=== PATIENT | male | born 1995 | race Hispanic/Latino ===

== ENCOUNTER 2018-03-22 11:18 | Emergency (ER) | payer OTHER, SELFPAY ==
[2018-03-22] MEDS ORDERED: Dexamethasone 4 mg/ml Vial ONE (12:05)
[2018-03-22] MEDS ORDERED: Ketorolac Tromethamine 30 MG/ML VIAL ONE (12:05)
[2018-03-22 12:17] LABS: Mononucleosis NEGATIVE (NEGATIVE)
[2018-03-22 12:17] LABS: #Basophils 0.1 thou/uL (0.0-0.2); #Lymphocytes 1.8 thou/uL (1.20-3.40); #Monocytes 0.6 thou/uL (0.11-0.59); #Neutrophils 7.2 thou/uL (1.40-6.50); %Basophils 0.6 % (0.0-1.0); %Eosinophils 0.3 % (0.0-10.0); %Lymphocytes 18.5 % (28.0-48.0); %Monocytes 6.5 % (0.0-4.0); Mean Corpuscular HGB CONC 33.6 g/dL (32.0-36.0); Mean Corpuscular Hemoglobin 30.9 pg (25.0-35.0); Mean Platelet Volume 7.2 fL (7.4-10.4); Platelet Count 287 thou/uL (130-400); RBC Distribution Width 11.8 % (11.5-14.5); Red Blood Cell (RBC) Count 5.18 mill/uL (4.00-5.20); White Blood Cell (WBC) Count 9.7 thou/uL (4.8-10.8)
[2018-03-22 12:18] LABS: MONO NEGATIVE CONTROL ZONE White (Negative) (White); MONO POSITIVE CONTROL Pink Line (Positive) (PINK/RED)
[2018-03-22 12:37] LABS: ALT (SGPT) 19 U/L (8-55); AST (SGOT) 20 U/L (5-34); Albumin 4.9 g/dL (3.5-5.0); Alkaline Phosphatase 79 U/L (Less than 750); Anion Gap 13 mmol/L (10-20); BUN (Urea Nitrogen) 10 mg/dL (8.9-20.6); Bilirubin, Total 1.3 mg/dL (0.2-1.2); Calc. Creatinine Clearance 0 mL/min (70-130); Calcium 10.2 mg/dL (7.8-10.44); Carbon Dioxide 24 mmol/L (22-29); Chloride 101 mmol/L (98-107); Estimated GFR-MDRD Greater than 90; Globulin 2.7 g/dL (2.4-3.5); Glucose 96 mg/dL (70-105); Potassium 3.8 mmol/L (3.5-5.1); Protein, Total 7.6 g/dL (6.0-8.3); Sodium 134 mmol/L (136-145)
--- NOTE | 2018-03-22 13:15 | CT ---
CT NECK SOFT TISSUES: HISTORY: Neck pain. Sore throat. COMPARISON: None. FINDINGS: The lung apices are clear. No significant cervical adenopathy. Mild hypertrophy of the nasopharynge al tonsils. Mild hypertrophy of the palatine tonsils without evidence of a drainable abscess. There is a small right palatine tonsillolith. The submandibular glands are symmetric without significant edema. Cervical spine alignment is normal . IMPRESSION: Mild nasopharyngeal and palatine tonsillitis without evidence of a drainable abscess. No significant cervical adenopathy. POS: KITTY
[2018-03-22] MEDS ORDERED: Iopamidol 370 76% 100 ML VIAL ONE (15:53)
== END 2018-03-22 15:02 | disposition home or self-care (01) ==
LOC: ERS 11:18
DX: K12.1 Other forms of stomatitis (principal); J02.9 Acute pharyngitis, unspecified; F90.9 Attention-deficit hyperactivity disorder, unspecified type; F31.9 Bipolar disorder, unspecified; F17.210 Nicotine dependence, cigarettes, uncomplicated
CPT/HCPCS: 36415; 70491; 80053; 85025; 86308; 87081; 87430; 96361; 96374; 96375; J1100; J1885

== ENCOUNTER 2018-11-04 05:31 | Emergency (ER) | payer OTHER, SELFPAY ==
--- NOTE | 2018-11-05 16:42 | EKG ---
Test Reason : Blood Pressure : / mmHG Vent. Rate : 097 BPM Atrial Rate : 097 BPM P-R Int : 162 ms QRS Dur : 096 ms QT Int : 322 ms P-R-T Axes : 070 094 062 degrees QTc Int : 408 ms Normal sinus rhythm Rightward axis Borderline ECG Confirmed by MALIK SCHOFIELD, ZENA ([id number]), movie editor ROGELIO RAHMAN ([id number]) on 11/05/2018 4:42:43 PM Referred By: Confirmed By:ZENA GAN MD
== END 2018-11-04 05:54 ==
LOC: ERS 05:31
DX: R55 Syncope and collapse (principal); F31.9 Bipolar disorder, unspecified; F17.210 Nicotine dependence, cigarettes, uncomplicated
CPT/HCPCS: 93005

== ENCOUNTER 2018-12-20 15:29 | Emergency (ER) | payer SELFPAY ==
[2018-12-20] MEDS ORDERED: diphenhydrAMINE 25 MG CAP ONE (16:30)
[2018-12-20] MEDS ORDERED: predniSONE 20 MG TAB ONE ×2 (16:30)
[2018-12-20] MEDS ORDERED: hydrOXYzine 25 MG TAB ONE (16:32)
== END 2018-12-20 16:33 | disposition home or self-care (01) ==
LOC: ERS 15:29
DX: R21 Rash and other nonspecific skin eruption (principal); F31.9 Bipolar disorder, unspecified; F17.210 Nicotine dependence, cigarettes, uncomplicated
CPT/HCPCS: 99282; J7512; Q0163

== ENCOUNTER 2022-08-21 21:00 | Emergency (ER) | payer SELFPAY ==
[2022-08-21] MEDS ORDERED: AMOXicillin 250 MG CAP ONE (22:07)
[2022-08-21] MEDS ORDERED: HYDROcodone/Acetaminophen 5/325 mg Tablet ONE (22:07)
== END 2022-08-21 22:35 | disposition home or self-care (01) ==
LOC: ERS 21:00
DX: K04.7 Periapical abscess without sinus (principal); K02.9 Dental caries, unspecified; F17.210 Nicotine dependence, cigarettes, uncomplicated
CPT/HCPCS: 99282